=== PATIENT | male | born 1980 | race Caucasian/White ===

== ENCOUNTER 2020-10-12 03:22 | Emergency (ER) | payer OTHER ==
[~2020-10-12 03:22] MED LIST: FLORASTOR250 MG PO; LODINE CAP 300300 MG PO; ZOFRAN ODT 4 MG4 MG PO
[2020-10-12 04:00] LABS: HEMOGLOBIN 14.6 gm/dl (14.0-17.5); RED BLOOD COUNT 5.22 M/UL (4.20-5.50)
[2020-10-12 04:22] LABS: BUN/CREATININE RATIO 12 (0-10)
[2020-10-12] MEDS ORDERED: VENTOLIN HFA 66.7 GM INH (04:50)
[2020-10-12] MEDS ORDERED: LODINE CAP 300300 MG PO (04:50)
[2020-10-12] MEDS ORDERED: ZOFRAN ODT 4 MG4 MG PO (04:50)
[2020-10-13] MEDS ORDERED: PROVENTIL HFA6.7 GM INH (16:19)
== END 2020-10-12 06:00 | disposition home or self-care (01) ==
LOC: ER1 03:22
PROVIDERS: Physician Assistant
DX: U07.1 COVID-19 (principal); I11.9 Hypertensive heart disease without heart failure
CPT/HCPCS: 0240U; 71045; 80053; 82550; 82553; 83605; 83874; 83880; 84484; 85025; 93005; 96374; 99285; J1100

== ENCOUNTER 2020-10-13 12:55 | Emergency (ER) | payer OTHER ==
[~2020-10-13 12:55] MED LIST changes: +VENTOLIN HFA 66.7 GM INH
[2020-10-13 15:06] LABS: HEMOGLOBIN 14.7 gm/dl (14.0-17.5); RED BLOOD COUNT 4.94 M/UL (4.20-5.50); WHITE BLOOD COUNT 5.6 K/UL (4.5-11.0)
[2020-10-13 15:34] LABS: BUN/CREATININE RATIO 12 (0-10)
[2020-10-13] MEDS ORDERED: PROVENTIL HFA6.7 GM INH (16:19)
== END 2020-10-13 16:50 | disposition home or self-care (01) ==
LOC: ER1 12:55
PROVIDERS: Physician Assistant
DX: U07.1 COVID-19 (principal); I10 Essential (primary) hypertension; Z79.899 Other long term (current) drug therapy; F17.220 Nicotine dependence, chewing tobacco, uncomplicated
CPT/HCPCS: 71045; 80053; 82550; 82553; 83874; 84439; 84443; 84484; 85025; 93005; 99285

== ENCOUNTER 2020-10-14 01:01 | Emergency (ER) | payer OTHER ==
[~2020-10-14 01:01] MED LIST changes: +PROVENTIL HFA6.7 GM INH
== END 2020-10-14 02:23 | disposition home or self-care (01) ==
LOC: ER1 01:01
DX: U07.1 COVID-19 (principal); I10 Essential (primary) hypertension
CPT/HCPCS: 99284

== ENCOUNTER 2020-11-05 20:56 | Emergency (ER) | payer OTHER ==
[2020-11-05 23:35] LABS: HEMOGLOBIN 13.9 gm/dl (14.0-17.5); RED BLOOD COUNT 4.64 M/UL (4.20-5.50); WHITE BLOOD COUNT 9.6 K/UL (4.5-11.0)
[2020-11-05 23:55] LABS: BUN/CREATININE RATIO 18 (0-10)
[2020-11-06] MEDS ORDERED: ELIQUIS5 M1 PO (07:43)
== END 2020-11-06 08:00 | disposition home or self-care (01) ==
LOC: ER1 20:56
PROVIDERS: Physician Assistant
DX: I26.99 Other pulmonary embolism without acute cor pulmonale (principal); I10 Essential (primary) hypertension; Z20.822 Contact with and (suspected) exposure to COVID-19; K76.0 Fatty (change of) liver, not elsewhere classified; R59.9 Enlarged lymph nodes, unspecified
CPT/HCPCS: 71046; 80053; 82550; 82553; 83874; 84484; 85025; 85379; 93005; 99285; Q9967; U0002

== ENCOUNTER 2020-11-11 18:28 | Emergency (ER) | payer OTHER ==
[~2020-11-11 18:28] MED LIST changes: +ELIQUIS5 M1 PO
[2020-11-11 21:42] LABS: HEMOGLOBIN 14.5 gm/dl (14.0-17.5); RED BLOOD COUNT 4.86 M/UL (4.20-5.50); WHITE BLOOD COUNT 10.1 K/UL (4.5-11.0)
[2020-11-11 22:06] LABS: BUN/CREATININE RATIO 13 (0-10)
[2020-11-12] MEDS ORDERED: VENTOLIN HFA 66.7 GM INH (03:48)
[2020-11-12] MEDS ORDERED: DOXYCYCLINE MO100 MG PO (03:48)
[2020-11-12] MEDS ORDERED: DECADRON6 MG PO (03:48)
== END 2020-11-12 06:03 | disposition home or self-care (01) ==
LOC: ER1 18:28
PROVIDERS: Physician Assistant
DX: U07.1 COVID-19 (principal); I10 Essential (primary) hypertension; Z86.711 Personal history of pulmonary embolism; Z79.01 Long term (current) use of anticoagulants
CPT/HCPCS: 80053; 81001; 82550; 82553; 83874; 83880; 84484; 85025; 85610; 85730; 93005; 99285; M0243; Q9967; U0002

== ENCOUNTER 2020-11-25 22:53 | Emergency (ER) | payer OTHER ==
[~2020-11-25 22:53] MED LIST changes: +DECADRON6 MG PO; +DOXYCYCLINE MO100 MG PO
[2020-11-26 00:36] LABS: HEMOGLOBIN 13.9 gm/dl (14.0-17.5); RED BLOOD COUNT 4.84 M/UL (4.20-5.50); WHITE BLOOD COUNT 7.6 K/UL (4.5-11.0)
[2020-11-26 00:53] LABS: BUN/CREATININE RATIO 20 (0-10)
== END 2020-11-26 02:20 | disposition home or self-care (01) ==
LOC: ER1 22:53
PROVIDERS: Physician Assistant
DX: U07.1 COVID-19 (principal)
CPT/HCPCS: 71045; 80053; 82550; 82553; 83605; 83735; 83874; 83880; 84484; 85025; 85652; 86140; 93005; 99285

== ENCOUNTER 2021-04-12 19:01 | Emergency (ER) | payer OTHER ==
[2021-04-12 23:19] LABS: HEMOGLOBIN 15.7 gm/dl (14.0-17.5); RED BLOOD COUNT 5.29 M/UL (4.20-5.50); WHITE BLOOD COUNT 12.8 K/UL (4.5-11.0)
[2021-04-12 23:56] LABS: BUN/CREATININE RATIO 21 (0-10)
[2021-04-15 23:10] LABS: CHLAMYDIA TRACHOMATIS, NAA Negative (Negative); NEISSERIA GONORRHOEAE, NAA Negative (Negative)
== END 2021-04-13 03:15 | disposition home or self-care (01) ==
LOC: ER1 19:01
PROVIDERS: Physician Assistant
DX: R30.0 Dysuria (principal); I10 Essential (primary) hypertension
CPT/HCPCS: 80053; 81001; 83690; 85025; 87086; 96372; 99283; J0696